=== PATIENT | male | born 1980 | race Caucasian/White ===

== ENCOUNTER 2019-01-01 02:56 | Emergency (ER) | payer OTHER ==
[2019-01-01] MEDS: PHENAZOPYRIDINE 100 MG TAB PO (04:47)
[2019-01-01] MEDS: CEFTRIAXONE 500 MG INJ IM (04:48)
== END 2019-01-01 05:01 | disposition home or self-care (01) ==
LOC: FTE 02:56
DX: N39.0 Urinary tract infection, site not specified (principal); I10 Essential (primary) hypertension
CPT/HCPCS: 81001; 87086; 96372; 99284-25